=== PATIENT | male | born 1945 ===

== ENCOUNTER → 2017-04-22 | Outpatient (CLI) | payer MEDICARE, OTHER ==
[~2017-04-22] VITALS: Ht 166.4 cm; Wt 85.4 kg
[~2017-04-22] MED LIST: ASPI-1093 PO; ATOR40TA28 PO; CARV6 PO; HYDR-309 PO; LISI-661 PO; METO25 PO; MULT1TAB70 PO; NITR0.4T27 SL; RANI75TA19 PO; TICA90TA PO
[2017-04-22 10:14] VITALS: BP 128/80
== END | disposition home or self-care (01) ==
LOC: SRCNTR 09:54
PROVIDERS: ATTEND Internal Medicine Clinical Cardiac Electrophysiology
DX: Z45.018 Encounter for adjustment and management of other part of cardiac pacemaker (principal); I44.1 Atrioventricular block, second degree; I10 Essential (primary) hypertension; I25.10 Atherosclerotic heart disease of native coronary artery without angina pectoris; M19.90 Unspecified osteoarthritis, unspecified site; E78.5 Hyperlipidemia, unspecified
CPT/HCPCS: G0463